=== PATIENT | male | born 1985 | race Caucasian/White ===

== ENCOUNTER 2016-10-16 09:44 | Emergency (ER) | payer OTHER ==
[2016-10-16 10:09] VITALS: BP 131/64; PULSE 56; RESP 16; TEMP 98.2; O2SAT 98
--- NOTE | 2016-10-16 10:44 | UCPHY ---
H & P Patient Type: New Chief Complaint Nursing Narrative: C/o productive cough with green mucus and chest congestion intermittently for 3 weeks worsening over past 2 days. Denies fever. States pt was treated with amoxicillin x 10 days for sinus infection recently. Time Seen by Provider: 10/16/16 10:27 HPI/ROS: CHIEF COMPLAINT: Cough HISTORY OF PRESENT ILLNESS: Patient is a 31-year-old man who comes to the Urgent Care complaining of a cough productive of green sputum. He states that he was treated last week for sinusitis with amoxicillin. He finished dose 3 days ago. He has not had a fever. He does have a mild sore throat. He denies shortness of breath. He does not have any significant past medical history. REVIEW OF SYSTEMS: Constitutional: denies: chills, fever, recent illness, recent injury EENTM: denies: blurred vision, double vision, nose congestion Respiratory: See HPI Cardiac: denies: chest pain, irregular heart rate, lightheadedness, palpitations Gastrointestinal/Abdominal: denies: abdominal pain, diarrhea, nausea, vomiting, blood streaked stools Genitourinary: denies: dysuria, frequency, hematuria, pain Musculoskeletal: denies: joint pain, muscle pain Skin: denies: lesions, rash, jaundice, bruising Neurological: denies: headache, numbness, paresthesia, tingling, dizziness, weakness Hematologic/Lymphatic: denies: blood clots, easy bleeding, easy bruising Immunologic/allergic: denies: HIV/AIDS, transplant EXAM: GENERAL: Well-appearing, well-nourished and in no acute distress. HEAD: Atraumatic, normocephalic. EYES: Pupils equal round and reactive to light, extraocular movements intact, sclera anicteric, conjunctiva are normal. ENT: TMs normal, nares patent, oropharynx clear without exudates. Moist mucous membranes. NECK: Normal range of motion, supple without lymphadenopathy or JVD. LUNGS: Breath sounds clear to auscultation bilaterally and equal. No wheezes rales or rhonchi. HEART: Regular rate and rhythm without murmurs, rubs or gallops. ABDOMEN: Soft, nontender, normoactive bowel sounds. No guarding, no rebound. No masses appreciated. BACK: No CVA tenderness, no spinal tenderness, step-offs or deformities EXTREMITIES: Normal range of motion, no pitting or edema. No clubbing or cyanosis. NEUROLOGICAL: Cranial nerves II through XII grossly intact. Normal speech, normal gait. 5/5 strength, normal movement in all extremities, normal sensation PSYCH: Normal mood, normal affect. SKIN: Warm, dry, normal turgor, no visible rashes or lesions. Source: Patient Exam Limitations: No limitations - Personal History Current Tetanus/Diphtheria Vaccine: Unsure Current Tetanus Diphtheria and Acellular Pertussis (TDAP): Unsure - Medical/Surgical History Hx Asthma: No Hx Chronic Respiratory Disease: No Hx Diabetes: No Hx Cardiac Disease: No Hx Renal Disease: No Hx Cirrhosis: No Hx Alcoholism: No Hx HIV/AIDS: No Hx Splenectomy or Spleen Trauma: No Other PMH: Denies - Family History Significant Family History: Hypertension - Social History Smoking Status: Never smoked Alcohol Use: Sober Drug Use: None Constitutional: Initial Vital Signs Temperature (C) 36.8 C 10/16/16 10:05 Heart Rate 56 L 10/16/16 10:05 Respiratory Rate 16 10/16/16 10:05 Blood Pressure 131/64 H 10/16/16 10:05 O2 Sat (%) 98 10/16/16 10:05 O2 Delivery Mode Room Air Allergies/Adverse Reactions: No Known Allergies Allergy (Verified 10/16/16 10:09) Home Medications: Medication Instructions Recorded Miscellaneous Medical Supply [NO 1 ea [facility] AD 03/11/12 HOME MEDS] levOFLOXACIN [levAQUIN] 750 mg PO DAILY #10 tab 10/16/16 Medical Decision Making - Diagnostics Imaging: X-ray: chest x-ray was obtained. I viewed the images myself on the PACS system. My interpretation of the images is: Bronchitis. The radiologist interpretation is pending. ED Course/Re-evaluation: Patient clinically has bronchitis and on chest x-ray. I will treat him with Levaquin and albuterol further coughing. He agrees with this plan and declines further workup or testing at this time. We discussed indications for returning. We had a discussion about quinolones and I told them that this is a an antibiotic that could potentially have some serious complications. We agreed that in this situation this is the right medication and one that I would give my family member but they do need to be aware these complications. We discussed increased risk of tendon rupture as well as peripheral neuropathy. I advised the patient to limit high impact activities. I told them to return for evaluation if they develop tendon or joint pain. This conversation represented shared medical decision making. We did consider alternatives. Differential Diagnosis: Partial list of the Differential diagnosis considered include but were not limited to; bronchitis, pneumonia and although unlikely based on the history and physical exam, I also considered asthma exacerbation, sinusitis, sepsis. I discussed these differential diagnoses and the plan with the patient as well as the usual and expected course. The patient understands that the diagnosis is provisional and that in medicine we are not always correct and that further workup is often warranted. Usual and customary warnings were given. All of the patient's questions were answered. The patient was instructed to return to the emergency department should the symptoms at all worsen or return, otherwise to followup with the physician as we discussed. - Data Points Medications Given: Discontinued Medications Albuterol Sulfate (Proventil Inh Prepack) 1 mdi AINSLEY JENSEN ONE Stop: 10/16/16 11:26 Last Admin: 10/16/16 11:39 Dose: 1 mdi Departure - Departure Disposition: Home, Routine, Self-Care Clinical Impression: Bronchitis Condition: Fair Instructions: Acute Bronchitis (ED) Referrals: Rahel Ceballos PAC [Primary Care Provider] - As per Instructions Prescriptions: levOFLOXACIN [levAQUIN] 750 mg PO DAILY #10 tab - PQRS PQRS Measurement: Not applicable
[2016-10-16] MEDS ORDERED: ALBUTEROL INH PREPACK MDI TAKEHOME ONE (11:25)
== END 2016-10-16 11:41 | disposition home or self-care (01) ==
LOC: CED 09:44
DX: J40 Bronchitis, not specified as acute or chronic (principal)
CPT/HCPCS: 71020-PO; 99204-PO; G0463-PO